=== PATIENT | female | born 1985 | race Caucasian/White ===

== ENCOUNTER 2023-11-06 10:23 | Emergency (ER) | payer SELFPAY ==
[2023-11-06 10:28] VITALS: BP 116/98
[2023-11-06 10:36] VITALS: BMI 25.1
--- NOTE | 2023-11-06 10:36 | ED.GENMED ---
History of Present Illness
General
Chief Complaint: Dizziness
Source: patient
Exam Limitations: none
Time Seen by Provider: 11/06/23 10:32
Nursing documentation reviewed up to this point in time: agreed with
Travel History
Have you had any contact with someone who has COVID-19?: No
Do you have any symptoms of coronavirus? Fever > 100 degrees, chills, cough, shortness of breath, sore throat, loss of taste or smell, muscle aches, or headache?: No
History of Present Illness
History of Present Illness:
38 yo female presents to the emergency department c/o syncope episode while walking her dog. She was walking her dog, and felt dizzy and lightheaded, leaned up against a sign and then laid down. She laid down she passed out. She denies any pain.
She was sitting up when her family found her, and called EMS. She still feels lightheaded at this time. She felt a ringing in her left ear prior to this happening. She has a history of seizures, but does not feel she had a seizure. She does
recall the event. No loss of bowel or bladder, she did not bite her tongue.
Past History
Past History
ED Past Medical History: Seizures and Psychiatric
ED Past Surgical History: None
Social History
Tobacco: Non-smoker
Alcohol: None
Drug: None
Living: with family (With her boyfriend)
Employment: Employed
Family History
Family History: Negative Early CAD
Review of Systems
Review of Systems
Allergies reviewed?: Yes
All Other Systems: Not applicable
Constitutional: Reports no symptoms
EENT: Reports no symptoms
Respiratory: Reports no symptoms
Cardiac: Reports syncope
ABD/GI: Reports no symptoms
: Reports no symptoms
Musculoskeletal: Reports no symptoms
Skin: Reports no symptoms
Neurological: Reports dizzy
Endocrine: Reports no symptoms
Hematologic/Lymphatic: Reports no symptoms
Phy Exam
Physical Exam
Physical Exam:
Physical Exam
General: no apparent distress, not acutely ill
Neck: supple. no meningeal signs. normal posterior pharynx
Heart: s1/s2 regular rate and rhythm, no murmur. equal radial
pulses.
HEENT: Pupils equal round reactive to light, EOMI
Lungs: no acute respiratory distress. clear bilaterally
Abdomen: normal bowel sounds. not tender. no CVAT
Neuro: alert and oriented. no focal neurological deficits cranial nerves II through XII intact
Skin: no rash
Psychiatric: well kept. interactive and cooperative
Extremities: no edema. no calf tenderness. negative homans. good distal pulses
Course
Orders/Labs/Results
Orders:
Orders
11/06/23 10:32
Electrocardiogram (*1) Stat
Reason for Study: Syncope
Electrocardiogram (*1) Urgent
Cardiac Monitoring- Treatment ONCE
EKG- Treatment ONCE
IV Insert/Care/Rem.- Treatment PRN
11/06/23 10:37
Complete Blood Count/With Diff Urgent
11/06/23 10:38
Basic Metabolic Panel Urgent
Abnormal Lab Results
11/06/23 11/06/23
10:37 10:38
RBC 4.14 L 10^6/uL
(4.20-5.40)
Hct 36.4 L %
(37.0-47.0)
MPV 11.3 H fL
(7.4-10.4)
Carbon Dioxide 21 L mmol/L
(22-30)
Glucose 126 H mg/dl
(70-99)
11/06/23 10:37
11/06/23 10:38
Vital Signs
Initial and Last Documented VS:
Initial Vital Signs
Temp Pulse Resp BP Pulse Ox
99.3 F 105 16 116/98 102
11/06/23 10:28 11/06/23 10:28 11/06/23 10:28 11/06/23 10:28 11/06/23 10:28
Last Documented Vital Signs
Temp Pulse Resp BP Pulse Ox
99.3 F 81 14 116/76 97
11/06/23 10:28 11/06/23 11:45 11/06/23 11:45 11/06/23 11:00 11/06/23 11:45
MDM/Problems Addressed
Differential Diagnosis Includes:
dysrhythmia, hypovolemia
MDM/Problems Addressed:
38 yo female with syncope episode. Prodrome symptoms. Do not suspect dysrhythmia or seizure. Stable for d/c.
*Pulse Oximetry
Patient hypoxic: no
*EKG
Interpreted by ED Provider?: Yes
EKG Intrepretation Date: 11/06/23
EKG Intrepretation Time: 11:08
Interpretation: normal
Comparison EKG: no changes
Heart Rate: 86
Rate: normal
Rhythm: sinus
[place]: normal axis
Interval: normal interval
QRS Pattern: normal QRS
Ischemia: no ischemia
*[employer] Interpretation
Rate: normal
Interpretation: normal
Heart Rate: 84
Rhythm: sinus
*Critical Care Note
Total Time (30-74mins, 75-104mins- exclusive of procedures): Not Applicable
Patient Management
Social determinants of health affecting care: Living situation
Escalation/DeEscalation of care consider admission/obs:
admit not indicated
ED Attending Note
-
Portions of this chart may have been created with voice recognition software.� Occasional wrong word or��sound alike� substitutions may have occurred due to the inherent limitations of voice recognition software.
Discharge Plan
Departure
Patient Disposition: Home (Routine Discharge)
Date of Disposition: 11/06/23
Time of Disposition: 13:45
Patient with high blood pressure during this ER visit?: No
Condition: Good
Discharge Problem:
Syncope
Instructions: Syncope (fainting)
Prescriptions:
No Action
trazodone 50 MG tablet
25 mg PO HS
paroxetine HCl 30 MG tablet
60 mg PO DAILY
Lamictal
DAILY
Referrals:
Mari Dominguez CRNP [Family Provider] - Call in 1-3 days for appt
Interventions
Interventions:
*General Assessment Last Done: 11/06/23 11:07
ED- Fall Risk Assessment Last Done: 11/06/23 11:07
ED- Neurological Assessment Last Done: 11/06/23 11:07
ED- Cardiac Assessment Last Done: 11/06/23 11:07
Discharge Date and Time
Print Language: [place]
[2023-11-06 10:45] LABS: % Basophils 0.5 % (0-2); % Eosinophils 1.7 % (0-6); % Immature Granulocytes 0.3 % (0-0.5); % Lymphocytes 30.4 % (20.5-51.1); % Monocytes 4.8 % (1.7-9.3); % Neutrophils 62.3 % (42.2-75.2); Absolute Eosinophils 0.1 10^3/uL (0-0.7); Absolute Monocytes 0.3 10^3/uL (0.1-0.6); Absolute Neutrophils 4.1 10^3/uL (1.4-6.5); Hematocrit 36.4 % (37.0-47.0); Hemoglobin 12.8 g/dL (12.0-16.0); Mean Corp Hgb Conc. 35.2 g/dL (33.0-37.0); Mean Corpuscular Hgb 30.9 pg (27.0-31.0); Mean Corpuscular Volume 87.9 fL (81.0-99.0); Mean Platelet Volume 11.3 fL (7.4-10.4); Nucleated Red Blood Cells % 0 %; Platelet Count 180 10^3/uL (130-400); Red Blood Cell Count 4.14 10^6/uL (4.20-5.40); Red Cell Dist. Width 11.6 % (11.5-14.5); White Blood Cell Count 6.6 10^3/uL (4.8-10.8)
[2023-11-06 11:00] VITALS: BP 116/76
[2023-11-06 11:07] LABS: Blood Urea Nitrogen 15 mg/dl (7-17); Calcium 9.1 mg/dl (8.4-10.2); Carbon Dioxide 21 mmol/L (22-30); Chloride 105 mmol/L (98-107); Estimated Creatinine Clearance 109 ml/min; Glucose 126 mg/dl (70-99); Sodium 137 mmol/L (135-145); eGFR > 60.00
[2023-11-06 12:00] VITALS: BP 97/54
[2023-11-06 13:00] VITALS: BP 118/85
== END 2023-11-06 13:50 | disposition home or self-care (01) ==
LOC: EMR 10:23
PROVIDERS: EMERGENCY PHYSICIAN Emergency Medicine; FAMILY PHYSICIAN Nurse Practitioner
DX: R55 Syncope and collapse (principal)
CPT/HCPCS: 99284; 80048; 85025; 93005

== ENCOUNTER → 2023-11-20 13:45 | Outpatient (REF) | payer BC, SELFPAY | LOC: HWRCS 13:45 | PROVIDERS: ATTENDING PHYSICIAN Nurse Practitioner | DX: R55 Syncope and collapse (principal) | CPT/HCPCS: 93306 ==

== ENCOUNTER → 2023-11-29 19:16 | Outpatient (REF) | payer BC, SELFPAY | LOC: MRI 19:16 | PROVIDERS: ATTENDING PHYSICIAN Nurse Practitioner | DX: R55 Syncope and collapse (principal); R53.1 Weakness | CPT/HCPCS: 70553; A9575 ==

== ENCOUNTER → 2024-10-04 09:26 | Outpatient (REF) | payer BC, SELFPAY | LOC: WDC 09:26 | PROVIDERS: ATTENDING PHYSICIAN Internal Medicine | DX: N64.52 Nipple discharge (principal); Z12.31 Encounter for screening mammogram for malignant neoplasm of breast | CPT/HCPCS: 76642; 77062; 77066 ==

== ENCOUNTER → 2024-12-11 08:43 | Outpatient (REF) | payer BC, SELFPAY | LOC: DHSLP 08:43 | PROVIDERS: ATTENDING PHYSICIAN Internal Medicine | DX: G47.19 Other hypersomnia (principal); R06.83 Snoring | CPT/HCPCS: 95800 ==

== ENCOUNTER → 2025-05-12 16:24 | Outpatient (REF) | payer BC, SELFPAY | LOC: MRI 3T 16:24 | DX: N64.52 Nipple discharge (principal) | CPT/HCPCS: 77049; A9585 ==